=== PATIENT | male | born 1965 | race Caucasian/White ===

== ENCOUNTER 2021-03-14 13:14 | Emergency (ER) | payer MEDICAID ==
[~2021-03-14] VITALS: Ht 180.3 cm; Wt 63.2 kg
[2021-03-14 13:19] VITALS: BP 143/82
--- NOTE | 2021-03-14 15:16 | NUR ---
discharged by NAYLA Mckeon
== END 2021-03-14 15:42 ==
LOC: ED 13:56
DX: R23.4 Changes in skin texture (principal); F15.90 Other stimulant use, unspecified, uncomplicated
CPT/HCPCS: 99281